=== PATIENT | male | born 1950 | race Caucasian/White ===

== ENCOUNTER → 2020-01-09 14:07 | Outpatient (CLI) | payer OTHER, MEDICARE, SELFPAY ==
--- NOTE | 2020-01-09 14:21 | DI.MRI.S_ITS ---
PROCEDURE: MR LUMBAR SPINE WO CON INDICATIONS: Low back, bialteral hip/upper thight pain. Right drop foot TECHNIQUE: Noncontrast sagittal T1 spin echo and T2 fast echo, sagittal STIR, axial T1 and T2 fast spin echo through the lumbar spine. In cases with scoliosis, additional coronal T2 fast spin echo may be performed. COMPARISON: [facility] [place], [place], SPINE LUMB MIN 4VW, 02/11/2014, 9:26. [facility] Outside Film, MR, MR LUMBAR SPINE WITHOUT CONTRAST, 01/14/2014, 9:40. FINDINGS: Image quality: Excellent. Alignment and Curvature: There is moderate scoliosis. There is a grade 1 anterolisthesis of L3 on L4 and grade 1 retrolisthesis of L1 on L2 and L5 on S1. Bone Marrow: Degenerative endplate signal changes are present. No acute vertebral body compression fractures. Spinal Cord: Conus medullaris terminates at the L1 level. Visualized cord demonstrates normal signal and size. Paraspinous Soft Tissues: No paravertebral masses. Probable gallstones. L1-L2: Severe loss of disc height and disc desiccation. There is diffuse posterior disc bulge and disc osteophyte complex. Moderate bilateral facet arthropathy and hypertrophy of ligamentum flavum. The central canal is severely narrowed. Severe bilateral foraminal stenosis. There is progression of disc and facet degeneration and increased Central canal and foraminal stenosis since the last exam. L2-L3: Moderate to severe loss of disc height and disc desiccation. There is diffuse posterior disc bulge and disc osteophyte complex. Severe bilateral facet arthropathy. The central canal is severely narrowed but unchanged. Severe bilateral foraminal stenosis, increased compared with the last exam. L3-L4: Postsurgical changes noted. Severe loss of disc height and disc desiccation. There is diffuse posterior disc bulge and disc osteophyte complex. Severe bilateral facet arthropathy. The central canal is severely narrowed, but unchanged. Severe bilateral foraminal stenosis, increased compared to the last exam. L4-L5: Postsurgical changes noted. Severe loss of disc height and disc desiccation. There is diffuse posterior disc bulge and disc osteophyte complex. Severe bilateral facet arthropathy. The central canal is moderately narrowed, but unchanged. Severe bilateral foraminal stenosis, increased compared to the last exam. L5-S1: Postsurgical changes noted. Moderate loss of disc height and disc desiccation. There is diffuse posterior disc bulge and disc osteophyte complex. Moderate bilateral facet arthropathy. The central canal is mildly narrowed, but unchanged. Severe bilateral foraminal stenosis, increased compared to the last exam. IMPRESSION: 1. 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 2. Severe central canal stenosis at L1-L2, L2-L3 and L3-L4. 3. Severe multilevel foraminal stenosis as described, increased since the last exam. 4. Probable gallstones. Abdominal ultrasound is suggested for further evaluation if clinically indicated. Dictated by: Kenia Cam M.D. on 01/09/2020 at 15:47 Approved by: Kenia Cam M.D. on 01/09/2020 at 16:05
== END ==
PROVIDERS: PCP Registered Nurse; Referring Provider Orthopaedic Surgery Orthopaedic Surgery of the Spine; Visit Provider Orthopaedic Surgery Orthopaedic Surgery of the Spine
DX: M54.5 Low back pain (principal); M25.551 Pain in right hip; M25.552 Pain in left hip; M79.651 Pain in right thigh; M79.652 Pain in left thigh; M21.371 Foot drop, right foot; M41.9 Scoliosis, unspecified; M43.16 Spondylolisthesis, lumbar region; M43.17 Spondylolisthesis, lumbosacral region; M47.816 Spondylosis without myelopathy or radiculopathy, lumbar region; M47.817 Spondylosis without myelopathy or radiculopathy, lumbosacral region; M48.061 Spinal stenosis, lumbar region without neurogenic claudication; M48.07 Spinal stenosis, lumbosacral region
CPT/HCPCS: 72148